=== PATIENT | female | born 1980 | race American Indian/Alaskan Native ===

== ENCOUNTER 2016-08-31 14:44 | Emergency (ER) | payer BC ==
[2016-08-31 16:38] VITALS: BP 122/81
== END 2016-08-31 22:22 | disposition left against medical advice (07) ==
LOC: ED 14:44
DX: R51 Headache (principal); M54.2 Cervicalgia; Z53.21 Procedure and treatment not carried out due to patient leaving prior to being seen by health care provider

== ENCOUNTER 2016-10-05 17:06 | Emergency (ER) | payer BC ==
[2016-10-05 18:11] VITALS: BP 114/77
[2016-10-05] MEDS ORDERED: BENADRYL PO ONE (21:10)
[2016-10-05] MEDS ORDERED: PEPCID PO ONE (21:10)
--- NOTE | 2016-10-05 22:10 | Emergency Department Report ---
HPI - General Chief Complaint: Allergic Reaction ED Past Medical Hx - Past Medical History Previous Medical History?: Yes Additional medical history: HERINATED DISC. states "skin disease" unsure of the name. takes meds for it. - Surgical History Past Surgical History?: Yes Additional Surgical History: partial hyst, Cervical discetomy - Social History Smoking Status: Never Smoker Substance Use Type: Other - Medications Home Medications: Home Medications Medication Instructions Recorded Confirmed Last Taken Type Cyclobenzaprine [Flexeril] 10 mg PO TID PRN 05/23/16 05/23/16 05/20/16 History Lubiprostone [Amitiza] 8 mcg PO BID 05/23/16 05/23/16 05/20/16 History Oxycodone HCl/Acetaminophen 05/23/16 05/20/16 History [Percocet 7.5/325 mg] Promethazine [Phenergan TAB] 12.5 mg PO Q6HR PRN 05/23/16 05/23/16 Unknown History Famotidine [Pepcid] 40 mg PO QAM #5 tablet 05/24/16 Unknown Rx diphenhydrAMINE [Benadryl CAP] 50 mg PO Q8HR PRN #5 capsule 05/24/16 Unknown Rx methylPREDNISolone [Medrol] 4 mg PO QAM #1 dosepack 05/24/16 Unknown Rx ED Review of Systems ROS: Stated complaint: NOSE SWOLLEN/BLEEDING Other details as noted in HPI Physical Exam - Physical Exam Vital Signs: Vital Signs 10/05/16 18:07 Temperature 98.6 F Pulse Rate 96 H Respiratory 20 Rate Blood Pressure 114/77 O2 Sat by Pulse 100 Oximetry ED Course Vital Signs 10/05/16 18:07 Temperature 98.6 F Pulse Rate 96 H Respiratory 20 Rate Blood Pressure 114/77 O2 Sat by Pulse 100 Oximetry Critical care attestation.: If time is entered above; I have spent that time in minutes in the direct care of this critically ill patient, excluding procedure time. ED Disposition Condition: Stable Referrals: PRIMARY CARE, [Primary Care Provider] - 3-5 Days
--- NOTE | 2016-10-05 22:22 | Emergency Department Report ---
Entered by BRISA WILLOUGHBY, acting as scribe for ALEK MULLER PA. ED Allergic Reaction HPI - General Chief complaint: Allergic Reaction Stated complaint: NOSE SWOLLEN/BLEEDING Time Seen by Provider: 10/05/16 21:00 Source: patient Mode of arrival: Ambulatory Limitations: No Limitations - History of Present Illness Initial Comments: 35 year old female presents to the ED c/o nasal congestion that began four days ago following exposure to pollen while outdoors. The patient states she sat on a swing and noticed that she had pollen on her hands, which she eventually ingested by wiping her face with her hands. Associated symptoms include chills, subjective fever, wheezing and SOB with coughing, nose bleeds, and gum, throat, and tongue itching. Denies nausea, vomiting, numbness, weakness, abdominal pain , and chest pain. She reports taking Claritin with no relief of the symptoms. The pt states that she has seasonal allergies to pollen and states that symptoms are alleviated with steroids. Noted the patient had neck surgery approximately 6 months ago after having a fusion of a herniated disc. MD Complaint: allergic reaction -: days(s) (4) Symptoms: itching (throat), difficulty breathing (SOB with coughing, cough, wheezing), other (nasal swelling and nasal congestion). denies: abdominal pain Severity: moderate Treatment Prior to Arrival: other (OTC Claritin) Previous Allergy History: other (allergic to pollen and had recent contact with pollen while outside) - Related Data Home Medications Medication Instructions Recorded Confirmed Last Taken Cyclobenzaprine [Flexeril] 10 mg PO TID PRN 05/23/16 05/23/16 05/20/16 Lubiprostone [Amitiza] 8 mcg PO BID 05/23/16 05/23/16 05/20/16 Oxycodone HCl/Acetaminophen 05/23/16 05/20/16 [Percocet 7.5/325 mg] Promethazine [Phenergan TAB] 12.5 mg PO Q6HR PRN 05/23/16 05/23/16 Unknown Previous Rx's Medication Instructions Recorded Last Taken Type Famotidine [Pepcid] 40 mg PO QAM #5 tablet 05/24/16 Unknown Rx diphenhydrAMINE [Benadryl CAP] 50 mg PO Q8HR PRN #5 capsule 05/24/16 Unknown Rx methylPREDNISolone [Medrol] 4 mg PO QAM #1 dosepack 05/24/16 Unknown Rx Cetirizine HCl [ZyrTEC] 10 mg PO QDAY #30 capsule 10/05/16 Unknown Rx Fluticasone [Flonase] 1 spray NS QDAY #1 bottle 10/05/16 Unknown Rx Allergies Allergy/AdvReac Type Severity Reaction Status Date / Time metoclopramide HCl Allergy Rash Verified 08/31/16 16:26 [From Reglan] Sulfa (Sulfonamide Allergy Rash Verified 08/31/16 16:26 Antibiotics) tramadol Allergy Rash Verified 08/31/16 16:26 ED Review of Systems Comment: All other systems reviewed and negative Constitutional: chills, fever (subjective) ENT: epistaxis (due to nasal dryness), congestion (nasal), other (nasal swelling , gum itching, throat itching) Respiratory: cough, shortness of breath (with cough), wheezing Cardiovascular: denies: chest pain Gastrointestinal: denies: abdominal pain, nausea, vomiting Musculoskeletal: other (nasal swelling) Neurological: denies: headache, weakness, numbness ED Past Medical Hx - Past Medical History Previous Medical History?: Yes Additional medical history: HERINATED DISC. states "skin disease" unsure of the name. takes meds for it. - Surgical History Past Surgical History?: Yes Additional Surgical History: partial hyst, Cervical discetomy - Social History Smoking Status: Never Smoker Substance Use Type: Other - Medications Home Medications: Home Medications Medication Instructions Recorded Confirmed Last Taken Type Cyclobenzaprine [Flexeril] 10 mg PO TID PRN 05/23/16 05/23/16 05/20/16 History Lubiprostone [Amitiza] 8 mcg PO BID 05/23/16 05/23/16 05/20/16 History Oxycodone HCl/Acetaminophen 05/23/16 05/20/16 History [Percocet 7.5/325 mg] Promethazine [Phenergan TAB] 12.5 mg PO Q6HR PRN 05/23/16 05/23/16 Unknown History Famotidine [Pepcid] 40 mg PO QAM #5 tablet 05/24/16 Unknown Rx diphenhydrAMINE [Benadryl CAP] 50 mg PO Q8HR PRN #5 capsule 05/24/16 Unknown Rx methylPREDNISolone [Medrol] 4 mg PO QAM #1 dosepack 05/24/16 Unknown Rx Cetirizine HCl [ZyrTEC] 10 mg PO QDAY #30 capsule 10/05/16 Unknown Rx Fluticasone [Flonase] 1 spray NS QDAY #1 bottle 10/05/16 Unknown Rx ED Physical Exam - General Limitations: No Limitations - Other Other exam information: GENERAL: Patient is alert and oriented x 3. No apparent distress, normal gait, atraumatic. HEAD: Head is normocephalic and atraumatic. EYES: Extraocular movements are intact. Pupils are equal, round, and reactive to light and accommodation. EARS: Symmetrical, atraumatic, non tender, ear canal clear with moderate cerumen , tympanic membrane non inflamed. Gross auditory nml bilaterally. NOSE: Nose symmetrical, nontender. turbinates swollen bilaterally. MOUTH:Mouth is well hydrated and without lesions. Mucous membranes are moist. Uvula midline. Tongue not elevated. Posterior pharynx clear, no exudate or lesions. Tonsils are not erythematous or swollen. Patent airway. No pooling of secretions. NECK: Noted the patient is wearing a C-collar, consistent with PSHx of fusion of a herniated disc approximately 6 months ago. Non edematous, no carotid bruits. No lymphadenopathy or thyromegaly. LUNGS: Symmetrical with respiration. No wheezing, rales or crackles, CTAB. Patient is in no respiratory distress. HEART: Regular rate and rhythm with normal S1/S2 present. No murmurs, rubs, or gallops. ABDOMEN: Soft, nondistended. Nontender to palpation on all quadrants. No organomegaly was noted. Positive bowel sounds. No CVA tenderness. EXTREMITIES/MUSCULOSKELETAL: No cyanosis, clubbing, rash, lesions or edema. Full ROM bilaterally. UE/LE Pulses 2+ bilaterally. LE and UE 5+ strength bilaterally SKIN: Warm and dry. No lesions, ulceration or induration present NEUROLOGIC: No focal deficit. ED Course Vital Signs 10/05/16 18:07 Temperature 98.6 F Pulse Rate 96 H Respiratory 20 Rate Blood Pressure 114/77 O2 Sat by Pulse 100 Oximetry ED Medical Decision Making - Medical Decision Making Patient evaluated by provider in fast track. 35 y/o female presents complaining of nasal swelling and congestion following exposure to pollen outdoors 4 days ago. Hx of seasonal allergies. Patient is in no acute distress at this time. She will be discharged home with Zyrtec 10 mg, Flonase 50mcg and is encouraged to follow up with a primary care provider. She is encouraged to return to the emergency room for any worsening symptoms. ED Disposition Clinical Impression: Seasonal allergies Qualifiers: Allergic rhinitis trigger: pollen Qualified Code(s): J30.1 - Allergic rhinitis due to pollen Disposition: DISCHARGED TO HOME OR SELFCARE Is pt being admited?: No Does the pt Need Aspirin: No Condition: Stable Instructions: Allergies (ED) Additional Instructions: Use the Flonase and Zyrtec as prescribed very importantly to follow her primary care provider for further evaluation. Prescriptions: Cetirizine HCl [ZyrTEC] 10 mg PO QDAY #30 capsule Fluticasone [Flonase] 1 spray NS QDAY #1 bottle Referrals: PRIMARY CARE, [Primary Care Provider] - 3-5 Days Forms: Work/School Release Form(ED) This documentation as recorded by the CASE ferrer GRACE,accurately reflects the service I personally performed and the decisions made by ,ALEK MULLER PA.
== END 2016-10-05 22:27 | disposition home or self-care (01) ==
LOC: ED 17:06
DX: J30.1 Allergic rhinitis due to pollen (principal)
CPT/HCPCS: 96372; 99282; J2920

== ENCOUNTER 2020-12-04 04:55 | Emergency (ER) | payer OTHER ==
[2020-12-04 05:43] VITALS: BP 119/84
[2020-12-04] MEDS ORDERED: predniSONE 50 MG TAB PO ONE (06:56)
[2020-12-04] MEDS ORDERED: AMOXICILLIN/K CLAV 875/125MG TAB PO ONE (06:56)
[2020-12-04] MEDS ORDERED: dexAMETHasone 20 MG/5 ML VIAL IM ONE (07:05)
--- NOTE | 2021-01-03 22:51 | Emergency Department Report ---
ED ENT HPI - General Chief complaint: Earache Stated complaint: BILATERAL EAR STOPPED UP, COUGH Time Seen by Provider: 12/04/20 06:41 Source: patient Mode of arrival: Ambulatory Limitations: No Limitations - History of Present Illness complaint: ear pain -: Gradual, days(s) (3-4) Location: L ear Severity: moderate Quality: aching, dull Consistency: constant Improves with: none Worsens with: none Associated Symptoms: denies: gum swelling, toothache, sore throat, rhinorrhea - Related Data Home Medications Medication Instructions Recorded Confirmed Last Taken Cyclobenzaprine [Flexeril] 10 mg PO TID PRN 05/23/16 05/23/16 05/20/16 Lubiprostone (Nf) [Amitiza] 8 mcg PO BID 05/23/16 05/23/16 05/20/16 Oxycodone HCl/Acetaminophen 05/23/16 05/20/16 [Percocet 7.5/325 mg] Promethazine [Phenergan TAB] 12.5 mg PO Q6HR PRN 05/23/16 05/23/16 Unknown Previous Rx's Medication Instructions Recorded Last Taken Type Famotidine [Pepcid] 40 mg PO QAM #5 tablet 05/24/16 Unknown Rx diphenhydrAMINE [Benadryl CAP] 50 mg PO Q8HR PRN #5 capsule 05/24/16 Unknown Rx methylPREDNISolone [Medrol] 4 mg PO QAM #1 dosepack 05/24/16 Unknown Rx Cetirizine HCl [ZyrTEC] 10 mg PO QDAY #30 capsule 10/05/16 Unknown Rx Fluticasone [Flonase] 1 spray NS QDAY #1 bottle 10/05/16 Unknown Rx Amoxicillin/Potassium Clav 1 each PO BID #20 tablet 12/04/20 Unknown Rx [Augmentin 875-125 Tablet] predniSONE [Deltasone] 50 mg PO QDAY #5 tab 12/04/20 Unknown Rx Allergies Allergy/AdvReac Type Severity Reaction Status Date / Time metoclopramide HCl Allergy Rash Verified 08/31/16 16:26 [From Reglan] Sulfa (Sulfonamide Allergy Rash Verified 08/31/16 16:26 Antibiotics) tramadol Allergy Rash Verified 08/31/16 16:26 ED Dental HPI - General Chief complaint: Earache Stated complaint: BILATERAL EAR STOPPED UP, COUGH Time Seen by Provider: 12/04/20 06:41 Source: patient Mode of arrival: Ambulatory Limitations: No Limitations - Related Data Home Medications Medication Instructions Recorded Confirmed Last Taken Cyclobenzaprine [Flexeril] 10 mg PO TID PRN 05/23/16 05/23/16 05/20/16 Lubiprostone (Nf) [Amitiza] 8 mcg PO BID 05/23/16 05/23/16 05/20/16 Oxycodone HCl/Acetaminophen 05/23/16 05/20/16 [Percocet 7.5/325 mg] Promethazine [Phenergan TAB] 12.5 mg PO Q6HR PRN 05/23/16 05/23/16 Unknown Previous Rx's Medication Instructions Recorded Last Taken Type Famotidine [Pepcid] 40 mg PO QAM #5 tablet 05/24/16 Unknown Rx diphenhydrAMINE [Benadryl CAP] 50 mg PO Q8HR PRN #5 capsule 05/24/16 Unknown Rx methylPREDNISolone [Medrol] 4 mg PO QAM #1 dosepack 05/24/16 Unknown Rx Cetirizine HCl [ZyrTEC] 10 mg PO QDAY #30 capsule 10/05/16 Unknown Rx Fluticasone [Flonase] 1 spray NS QDAY #1 bottle 10/05/16 Unknown Rx Amoxicillin/Potassium Clav 1 each PO BID #20 tablet 12/04/20 Unknown Rx [Augmentin 875-125 Tablet] predniSONE [Deltasone] 50 mg PO QDAY #5 tab 12/04/20 Unknown Rx Allergies Allergy/AdvReac Type Severity Reaction Status Date / Time metoclopramide HCl Allergy Rash Verified 08/31/16 16:26 [From Reglan] Sulfa (Sulfonamide Allergy Rash Verified 08/31/16 16:26 Antibiotics) tramadol Allergy Rash Verified 08/31/16 16:26 ED Review of Systems ROS: Stated complaint: BILATERAL EAR STOPPED UP, COUGH Other details as noted in HPI Comment: All other systems reviewed and negative ED Past Medical Hx - Past Medical History Hx of Cancer: Yes (uterine) Additional medical history: HERINATED DISC. states "skin disease" unsure of the name. takes meds for it. - Surgical History Additional Surgical History: partial hyst, Cervical discetomy - Social History Smoking Status: Never Smoker Substance Use Type: None - Medications Home Medications: Home Medications Medication Instructions Recorded Confirmed Last Taken Type Cyclobenzaprine [Flexeril] 10 mg PO TID PRN 05/23/16 05/23/16 05/20/16 History Lubiprostone (Nf) [Amitiza] 8 mcg PO BID 05/23/16 05/23/16 05/20/16 History Oxycodone HCl/Acetaminophen 05/23/16 05/20/16 History [Percocet 7.5/325 mg] Promethazine [Phenergan TAB] 12.5 mg PO Q6HR PRN 05/23/16 05/23/16 Unknown History Famotidine [Pepcid] 40 mg PO QAM #5 tablet 05/24/16 Unknown Rx diphenhydrAMINE [Benadryl CAP] 50 mg PO Q8HR PRN #5 capsule 05/24/16 Unknown Rx methylPREDNISolone [Medrol] 4 mg PO QAM #1 dosepack 05/24/16 Unknown Rx Cetirizine HCl [ZyrTEC] 10 mg PO QDAY #30 capsule 10/05/16 Unknown Rx Fluticasone [Flonase] 1 spray NS QDAY #1 bottle 10/05/16 Unknown Rx Amoxicillin/Potassium Clav 1 each PO BID #20 tablet 12/04/20 Unknown Rx [Augmentin 875-125 Tablet] predniSONE [Deltasone] 50 mg PO QDAY #5 tab 12/04/20 Unknown Rx ED Physical Exam - General Limitations: No Limitations General appearance: alert, in no apparent distress - Head Head exam: Present: atraumatic, normocephalic - Eye Eye exam: Present: normal appearance - ENT ENT exam: Present: mucous membranes moist, other (Effusion behind tympanic membrane with some injection no erythema noted. No tragal tenderness noted no mastoid tenderness is noted. No discharge. Pharynx is clear) - Neck Neck exam: Present: normal inspection - Respiratory Respiratory exam: Present: normal lung sounds bilaterally. Absent: respiratory distress - Cardiovascular Cardiovascular Exam: Present: regular rate, normal rhythm. Absent: systolic murmur, diastolic murmur, rubs, gallop - GI/Abdominal GI/Abdominal exam: Present: soft, normal bowel sounds - Extremities Exam Extremities exam: Present: normal inspection - Back Exam Back exam: Present: normal inspection - Neurological Exam Neurological exam: Present: alert, oriented X3 - Psychiatric Psychiatric exam: Present: normal affect, normal mood - Skin Skin exam: Present: warm, dry, intact, normal color. Absent: rash ED Course Vital Signs 12/04/20 05:08 Temperature 98.6 F Pulse Rate 91 H Respiratory 18 Rate Blood Pressure 119/84 O2 Sat by Pulse 100 Oximetry ED Medical Decision Making - Medical Decision Making Exam and history Ms. Joe consistent with otitis media. I have low suspicion at this time for mastoiditis, malignant otitis externa, herpes, retained foreign body. No evidence of any tympanic membrane rupture 4th cranial nerve palsy plan will provide a prescription for antibiotics for the next 7 to 10 days. And return precautions were were discussed with full understanding. Critical care attestation.: If time is entered above; I have spent that time in minutes in the direct care of this critically ill patient, excluding procedure time. ED Disposition Clinical Impression: Otitis media Disposition: [id number]-01 TO HOME OR SELFCARE Is pt being admited?: No Does the pt Need Aspirin: No Condition: Stable Instructions: Ear Drops, Adult, [id number], Otitis Media, Adult, [id number], Otitis Media, Adult Prescriptions: Amoxicillin/Potassium Clav [Augmentin 875-125 Tablet] 1 each PO BID #20 tablet predniSONE [Deltasone] 50 mg PO QDAY #5 tab Referrals: [facility] [Provider Group] - 3-5 Days PRIMARY CARE, [Primary Care Provider] - 3-5 Days
== END 2020-12-04 07:01 | disposition home or self-care (01) ==
LOC: ED 04:55
DX: H66.93 Otitis media, unspecified, bilateral (principal); Z79.899 Other long term (current) drug therapy; Z88.2 Allergy status to sulfonamides; Z88.8 Allergy status to other drugs, medicaments and biological substances; Z98.890 Other specified postprocedural states
CPT/HCPCS: 96372; 99282; J1100; J7512